=== PATIENT | female | born 1950 | race American Indian/Alaskan Native ===

== ENCOUNTER 2023-06-02 12:26 | Day surgery (SDC) | payer MEDICARE, OTHER ==
[2023-06-01 12:31] LABS: BASOPHILS % (AUTO) 0.6 % (0-1); EOSINOPHILS # (AUTO) 0.4 X10'3 (0-0.9); EOSINOPHILS % (AUTO) 6.2 % (0-6); LYMPHOCYTES # (AUTO) 1.2 X10'3 (1.1-4.8); LYMPHOCYTES % (AUTO) 20.6 % (21-51); MEAN CORPUSCULAR HEMOGLOBIN 26.7 PG (27.0-31.0); MEAN CORPUSCULAR HGB CONC 33.2 g/dL (33.0-36.5); MEAN CORPUSCULAR VOLUME 80.3 FL (78-98); MEAN PLATELET VOLUME 8.1 FL (7.4-10.4); MONOCYTES # (AUTO) 0.5 X10'3 (0-0.9); MONOCYTES % (AUTO) 8.5 % (2-12); NEUTROPHILS # (AUTO) 3.8 X10'3 (1.8-7.7); NEUTROPHILS % (AUTO) 64.1 % (42-75); PRE OP HEMATOCRIT 38.8 % (35.0-45.0); PRE OP HEMOGLOBIN 12.9 g/dL (12.0-16.0); PRE OP PLATELET COUNT 221 X10'3 (140-440); PRE OP WHITE BLOOD COUNT 5.9 10'3 (4.8-10.8); RED BLOOD COUNT 4.83 X10'6 (4.20-5.60); RED CELL DISTRIBUTION WIDTH 15.3 % (11.5-14.5)
[2023-06-01 12:48] LABS: ALBUMIN 3.4 G/DL (3.4-5.0); ALBUMIN/GLOBULIN RATIO 0.8 (1.1-1.5); ALKALINE PHOSPHATASE 88 IU/L (46-116); BLOOD UREA NITROGEN 24 MG/DL (7-18); BUN/CREATININE RATIO 19.5 (10.0-20.0); CHLORIDE 105 MMOL/L (99-107); CREATININE 1.23 MG/DL (0.40-0.90); PRE OP ALT 19 U/L (30-65); PRE OP ANION GAP 7 (8-16); PRE OP AST 25 U/L (10-37); PRE OP BILIRUB, TOTAL 1.3 MG/DL (0.0-1.0); PRE OP GLUCOSE 108 MG/DL (70-104); PRE OP POTASSIUM 3.8 MMOL/L (3.4-5.1); PRE OP SODIUM 137 MMOL/L (135-145); TOTAL CARBON DIOXIDE 25.1 MMOL/L (24-32); TOTAL PROTEIN 7.7 G/DL (6.4-8.2); eGFR 43 ML/MIN
[~2023-06-02] VITALS: Ht 157.5 cm; Wt 90.5 kg
[2023-06-02] VITALS (7 sets, daily range): BP systolic 112–179; BP diastolic 65–100; PULSE 81–106; RESP 14–16; TEMP 97; O2SAT 98–100
[~2023-06-02 12:26] MED LIST: ASPI81TA52 PO; ATOR40TA72 PO; famotidine 20mg tablet PO ONE; ringers solution, lacted 1,000 ML IV SCH
[2023-06-02] MEDS ORDERED: fentaNYL/PF 50MCG/1 ML 2ML syringe ONE (14:09)
[2023-06-02] MEDS ORDERED: sevoflurane 250ml liquid IH ONE (14:14)
[2023-06-02] MEDS ORDERED: propofol inj 20 ML IV ONE (14:39)
[2023-06-02] MEDS ORDERED: rocuronium 10mg/ml inj IV ONE (14:39)
[2023-06-02] MEDS ORDERED: dexamethasone sod phosphate 4mg/ml inj. ONE (14:39)
[2023-06-02] MEDS ORDERED: ondansetron/PF 4mg/2ml inj ONE (14:39)
[2023-06-02] MEDS ORDERED: LIDOcaine 2% (20mg/ml) 5ml vial ONE (14:39)
[2023-06-02] MEDS ORDERED: ringers solution, lacted 1,000 ML IV SCH (14:50)
[2023-06-02] MEDS ORDERED: ipratropium/albuterol 3ml nebule IH ONE (14:50)
[2023-06-02] MEDS ORDERED: morphine 2 MG/ML inj. syringe IV PRN (14:50)
[2023-06-02] MEDS ORDERED: ondansetron/PF 4mg/2ml inj IV PRN (14:50)
[2023-06-02] MEDS ORDERED: HYDROmorphone/PF 0.2 MG/ML SYRINGE IV PRN ×2 (14:50)
[2023-06-02] MEDS ORDERED: ePHEDrine 50MG/ML INJ. ONE (14:53)
[2023-06-02] MEDS ORDERED: sugammadex 200mg/2ml injection IV ONE (15:22)
[2023-06-02] MEDS ORDERED: fentaNYL/PF 50MCG/1 ML 2ML syringe IV PRN (15:40)
[2023-06-02] MEDS ORDERED: diphenhydrAMINE 50 mg/ml inj IV ONE (15:40)
[2023-06-02] MEDS ORDERED: neostigmine methylsulfate 1 MG/ML 10ml vial ONE (15:42)
[2023-06-02] MEDS ORDERED: glycopyrrolate 0.2mg/ml inj ONE (15:42)
[2023-06-02] MEDS ORDERED: albuterol 60 PUFF/8GM Inhaler (90mcg/1 puff) IH ONE (15:42)
[2023-06-02] MEDS ORDERED: diphenhydrAMINE 25mg capsule PO ONE (15:55)
== END 2023-06-02 16:20 | disposition home or self-care (01) ==
LOC: PAS 12:26
PROVIDERS: ATTEND Internal Medicine Critical Care Medicine
DX: R22.2 Localized swelling, mass and lump, trunk (principal); I25.10 Atherosclerotic heart disease of native coronary artery without angina pectoris; J44.9 Chronic obstructive pulmonary disease, unspecified; G47.33 Obstructive sleep apnea (adult) (pediatric); E66.9 Obesity, unspecified; F12.90 Cannabis use, unspecified, uncomplicated; Z87.891 Personal history of nicotine dependence; Z85.3 Personal history of malignant neoplasm of breast; Z79.82 Long term (current) use of aspirin; Z79.899 Other long term (current) drug therapy; Z90.49 Acquired absence of other specified parts of digestive tract; Z95.1 Presence of aortocoronary bypass graft; Z98.84 Bariatric surgery status; Z98.891 History of uterine scar from previous surgery; Z98.890 Other specified postprocedural states; Z68.36 Body mass index [BMI] 36.0-36.9, adult; Z88.5 Allergy status to narcotic agent; Z91.041 Radiographic dye allergy status; Z88.8 Allergy status to other drugs, medicaments and biological substances
CPT/HCPCS: 31623; 31624; 31628; 31629; 31653; 36415; 71045; 71250; 80053; 82948; 85025; 87015; 87070; 87116; 87206; 94760; J1100; J2270; J2405; J2704; J2710; J3010; J3490; J7120; Q0163; Z7506; Z7508; Z7512; 31622; 31625; 31626; 31627; 31654; A4618